=== PATIENT | female | born 1990 | race Caucasian/White ===

== ENCOUNTER 2022-09-28 02:29 | Emergency (ER) | payer BC, OTHER ==
[2022-09-28 02:58] LABS: #Basophils 0.1 10x3/uL (0.0-0.2); #Monocytes 0.6 10x3/uL (0.0-1.1); #Neutrophils 10.1 10x3/uL (1.5-8.4); %Basophils 0.4 % (0.0-2.0); %Eosinophils 0.2 % (0.0-6.0); %Lymphocytes 14.5 % (18.0-47.0); %Monocytes 4.7 % (0.0-10.0); Mean Corpuscular HGB CONC 33.9 g/dL (32.0-36.0); Mean Corpuscular Volume 94.6 fl (81.6-98.3); Mean Platelet Volume 9.5 fl (7.4-10.4); Platelet Count 312 10x3/uL (150-450); RBC Distribution Width 12.7 % (11.5-14.5); Red Blood Cell (RBC) Count 4.06 10x6/uL (3.90-5.03); White Blood Cell (WBC) Count 12.6 10x3/uL (3.5-10.5)
[2022-09-28] MEDS ORDERED: Acetaminophen 500 MG TAB ONE (03:13)
[2022-09-28 03:16] LABS: ALT (SGPT) 14 U/L (8-55); AST (SGOT) 13 U/L (5-34); Albumin 4.3 g/dL (3.5-5.0); Alkaline Phosphatase 65 U/L (40-110); Anion Gap 15 mmol/L (10-20); BUN (Urea Nitrogen) 15 mg/dL (7.0-18.7); Bilirubin, Total 0.4 mg/dL (0.2-1.2); Calc. Creatinine Clearance 0 mL/min (70-130); Calcium 9.3 mg/dL (7.8-10.44); Carbon Dioxide 22 mmol/L (22-29); Chloride 103 mmol/L (98-107); Estimated GFR 118; Globulin 3.5 g/dL (2.4-3.5); Glucose 97 mg/dL (70-105); Lipase 19 U/L (8-78); Potassium 3.5 mmol/L (3.5-5.1); Protein, Total 7.8 g/dL (6.0-8.3); Sodium 136 mmol/L (136-145)
[2022-09-28 05:39] LABS: Bilirubin Neg (Negative); Blood, Urine 25 (Negative); Clarity Cloudy (Clear); Glucose, Urine (Dipstick) Normal (Negative); Ketone, Urine 50 mg/dL (Negative); Leukocyte 500 (Negative); Nitrite Positive (Negative); Protein, Urine (Dipstick) 30 mg/dl (Neg-Trace); Urobilinogen Normal mg/dL (Less than 2)
[2022-09-28 05:42] LABS: Bacteria/HPF 4+ HPF (None Seen); RBC/HPF 0-3 HPF (0-3)
== END 2022-09-28 05:54 | disposition home or self-care (01) ==
LOC: CSHERS 02:29
DX: O23.41 Unspecified infection of urinary tract in pregnancy, first trimester (principal); Z3A.10 10 weeks gestation of pregnancy
CPT/HCPCS: 76815; 80053; 81003; 81015; 83690; 84702; 85025

== ENCOUNTER 2023-02-24 13:47 | Day surgery (SDC) | payer BC, OTHER ==
[2023-02-24] MEDS ORDERED: hydrALAZINE 20 MG/ML VIAL SLOW IVP PRN (14:21)
[2023-02-24 15:26] LABS: Amphetamine Not Detected (NotDetected); Barbiturates Screen Not Detected (NotDetected); Benzodiazepine Screen Not Detected (NotDetected); Cocaine Metabolite Screen Not Detected (NotDetected); Methadone Not Detected (NotDetected); Methamphetamine Not Detected (NotDetected); Opiate Screen Not Detected (NotDetected); Oxycodone Screen Not Detected (NotDetected); Phencyclidine (PCP) Not Detected (NotDetected); THC/Cannabinoid Screen Not Detected (NotDetected); Tricyclic Screen Not Detected (NotDetected)
[2023-02-24 16:09] LABS: Fetal Membranes Rupture No Membranes Rupture (No Rupture)
[2023-02-25 19:58] LABS: Chlamydia by PCR, EndoCx Swab DETECTED (NotDetected); GC by PCR, EndoCx Swab Not Detected (NotDetected)
== END 2023-02-24 18:00 | disposition home or self-care (01) ==
LOC: CSHLD/OP 13:47 → EEVIPCON 13:47 → CSHLD/OP 18:00
PROVIDERS: ATTEND Obstetrics & Gynecology
DX: Z03.71 Encounter for suspected problem with amniotic cavity and membrane ruled out (principal); O47.03 False labor before 37 completed weeks of gestation, third trimester; Z79.899 Other long term (current) drug therapy; Z3A.31 31 weeks gestation of pregnancy
CPT/HCPCS: 80306; 84112; 87480; 87491; 87510; 87591; 87660; 99285

== ENCOUNTER 2023-02-27 19:34 | Day surgery (SDC) | payer BC, OTHER ==
[2023-02-27 19:44] VITALS: BMI 21.2
[2023-02-27 20:46] LABS: Fetal Membranes Rupture No Membranes Rupture (No Rupture)
[2023-02-27] MEDS ORDERED: hydrALAZINE 20 MG/ML VIAL SLOW IVP PRN (21:03)
[2023-02-27 21:39] LABS: Bilirubin Neg (Negative); Blood, Urine Negative (Negative); Glucose, Urine (Dipstick) Normal (Negative); Ketone, Urine Negative (Negative); Leukocyte 500 (Negative); Nitrite Negative (Negative); Protein, Urine (Dipstick) Negative (Neg-Trace); Urobilinogen Normal mg/dL (Less than 2)
[2023-02-27 21:44] LABS: Clarity Clear (Clear)
[2023-02-27 21:49] LABS: Bacteria/HPF 1+ HPF (None Seen); CAUTI Indications for Culture Pregnancy; RBC/HPF 0-3 HPF (0-3)
[2023-02-27 21:50] LABS: Urine Culture Reflex Yes Yes
[2023-02-27] MEDS ORDERED: Azithromycin 250 MG TAB PO SCH (22:00)
== END 2023-02-27 22:18 ==
LOC: EEVIPCON 19:34 → CSHLD/OP 19:34
PROVIDERS: ATTEND Obstetrics & Gynecology
DX: Z03.71 Encounter for suspected problem with amniotic cavity and membrane ruled out (principal); O99.810 Abnormal glucose complicating pregnancy; O98.313 Other infections with a predominantly sexual mode of transmission complicating pregnancy, third trimester; A56.02 Chlamydial vulvovaginitis; Z88.1 Allergy status to other antibiotic agents; Z3A.31 31 weeks gestation of pregnancy; Z79.899 Other long term (current) drug therapy
CPT/HCPCS: 81001; 84112; 87086; 99284

== ENCOUNTER 2023-04-14 06:09 | Inpatient (IN) | payer OTHER ==
[2023-04-14] MEDS ORDERED: Butorphanol Tartrate 1 MG/ML VIAL SLOW IVP PRN (06:21)
[2023-04-14] MEDS ORDERED: Misoprostol 200 MCG TAB PR PRN (06:21)
[2023-04-14] MEDS ORDERED: hydrALAZINE 20 MG/ML VIAL SLOW IVP PRN ×2 (06:21→09:24)
[2023-04-14] MEDS ORDERED: Lidocaine 1% (PF) 30 ML VIAL SC PRN (06:21)
[2023-04-14] MEDS ORDERED: Tranexamic Acid 1,000 MG/10 ML VIAL IVP PRN (06:21)
[2023-04-14] MEDS ORDERED: Carboprost 250 MCG/ML AMP IM PRN (06:21)
[2023-04-14] MEDS ORDERED: Promethazine HCl 25 MG/ML VIAL IM PRN (06:21)
[2023-04-14] MEDS ORDERED: Ondansetron PF 4 MG/2 ML Vial IVP PRN (06:21)
[2023-04-14] MEDS ORDERED: Diphenoxylate HCl/Atropine Tablet PO PRN (06:21)
[2023-04-14] MEDS ORDERED: Methylergonovine 0.2 MG/ML VIAL IM PRN (06:21)
[2023-04-14 06:22] VITALS: BMI 23.0
[2023-04-14] MEDS ORDERED: NS w/ Oxytocin 30 units 500 ML ONE (06:29)
[2023-04-14] MEDS ORDERED: Lidocaine 1% (PF) 30 ML VIAL ONE (06:29)
[2023-04-14] MEDS ORDERED: NS w/ Oxytocin 30 units 500 ML IV SCH (06:30)
[2023-04-14] MEDS ORDERED: Penicillin G Potassium 5 MILL.UNITS in Sodium Chloride 0.9% 100 ML IVPB SCH (06:30)
[2023-04-14] MEDS ORDERED: Lactated Ringer's 1,000 ML IV SCH (06:30)
[2023-04-14 06:46] LABS: Hemoglobin 11.9 g/dL (12.0-15.5); Mean Corpuscular Hemoglobin 28.1 pg (27.0-33.0); Mean Corpuscular Volume 87.7 fl (81.6-98.3); Mean Platelet Volume 10.3 fl (7.4-10.4); Platelet Count 305 10x3/uL (150-450); RBC Distribution Width 16.4 % (11.5-14.5); Red Blood Cell (RBC) Count 4.24 10x6/uL (3.90-5.03); White Blood Cell (WBC) Count 12.4 10x3/uL (3.5-10.5)
[2023-04-14 07:15] LABS: Amphetamine Detected (NotDetected); Barbiturates Screen Not Detected (NotDetected); Benzodiazepine Screen Not Detected (NotDetected); Cocaine Metabolite Screen Detected (NotDetected); Methadone Not Detected (NotDetected); Methamphetamine Detected (NotDetected); Opiate Screen Not Detected (NotDetected); Oxycodone Screen Not Detected (NotDetected); Phencyclidine (PCP) Not Detected (NotDetected); THC/Cannabinoid Screen Not Detected (NotDetected); Tricyclic Screen Not Detected (NotDetected)
[2023-04-14] MEDS: NS w/ Oxytocin 30 units 500 ML IV SCH ×2 (07:40→08:43)
[2023-04-14 07:45] LABS: Syphilis Antibody Index 27.14 S/CO (<1.00 Non-Reactive)
[2023-04-14] MEDS ORDERED: Milk Of Magnesia 30 ML UDCUP PO PRN (09:24)
[2023-04-14] MEDS ORDERED: Boostrix 0.5 ML (Tdap) VIAL (>/=7 yrs of age) IM ONE (09:24)
[2023-04-14] MEDS ORDERED: Bisacodyl 10 MG SUPP PR PRN (09:24)
[2023-04-14 09:32] LABS: HBSAg Index 0.12 S/CO (0-0.99); Hep B Surf Ag - L&D Non-Reactive S/CO (NonReactive)
[2023-04-14 09:45] LABS: HIV (1/2) Antibody/Antigen Non-Reactive (NonReactive); HIV 1/2 INDEX 0.07 S/CO (<1.00)
[2023-04-14] MEDS ORDERED: Docusate 100 MG CAP PO SCH (10:00)
[2023-04-14] MEDS ORDERED: Penicillin G 2.5 MILL.units 2.5 MILL.UNITS in Premix Bag 1 BAG IVPB SCH (10:30)
[2023-04-14 11:18] LABS: Syphilis Antibody REACTIVE (Nonreactive)
[2023-04-14] MEDS: Ibuprofen 800 MG TAB PO SCH ×2 (13:46→21:26)
[2023-04-14] MEDS ORDERED: Bicillin LA 2.4 MILL.UNITS/4 ML SYRINGE IM SCH (16:00)
[2023-04-14] MEDS: Ferrous Sulfate 325 MG TAB PO SCH (18:07)
[2023-04-14] MEDS: Docusate 100 MG CAP PO SCH (21:26)
[2023-04-15 04:19] LABS: #Basophils 0.1 10x3/uL (0.0-0.2); #Eosinphils 0.1 10x3/uL (0.0-0.5); #Monocytes 0.9 10x3/uL (0.0-1.1); #Neutrophils 9.3 10x3/uL (1.5-8.4); %Basophils 0.5 % (0.0-2.0); %Eosinophils 0.9 % (0.0-6.0); %Lymphocytes 19.4 % (18.0-47.0); %Neutrophils 71.6 % (40.0-75.0); Mean Corpuscular Hemoglobin 28.8 pg (27.0-33.0); Mean Corpuscular Volume 90.1 fl (81.6-98.3); Mean Platelet Volume 10.4 fl (7.4-10.4); Platelet Count 236 10x3/uL (150-450); RBC Distribution Width 16.6 % (11.5-14.5); Red Blood Cell (RBC) Count 3.82 10x6/uL (3.90-5.03)
[2023-04-15] MEDS: Ibuprofen 800 MG TAB PO SCH (06:02)
[2023-04-15 07:45] VITALS: BP 102/59; TEMP 98
[2023-04-15] MEDS: Ferrous Sulfate 325 MG TAB PO SCH (08:15)
[2023-04-15] MEDS: Docusate 100 MG CAP PO SCH (08:20)
== END 2023-04-15 09:55 | disposition home or self-care (01) | DRG 806 ==
LOC: CSHLD/OP 06:09 → CSHLD 06:22 → CSHPED 10:45
PROVIDERS: ADMIT Obstetrics & Gynecology; ATTEND Obstetrics & Gynecology
PROC: 10E0XZZ Delivery of Products of Conception, External Approach (ICD-10-PCS; principal; 2023-04-14)
PROC: 0HQ9XZZ Repair Perineum Skin, External Approach (ICD-10-PCS; 2023-04-14)
DX: O99.324 Drug use complicating childbirth (principal); O98.12 Syphilis complicating childbirth; Z37.0 Single live birth; F15.90 Other stimulant use, unspecified, uncomplicated; O70.0 First degree perineal laceration during delivery; F14.90 Cocaine use, unspecified, uncomplicated; Z88.1 Allergy status to other antibiotic agents; Z91.040 Latex allergy status; Z3A.38 38 weeks gestation of pregnancy; O76 Abnormality in fetal heart rate and rhythm complicating labor and delivery; A53.9 Syphilis, unspecified
CPT/HCPCS: 36415; 80306; 85025; 85027; 86593; 86762; 86780; 86850; 86900; 86901; 87340; 87389; 88307; 99285; J0561; J2001; J2210; J2540; J2590; J3490